=== PATIENT | female | born 1960 | race Caucasian/White ===

== ENCOUNTER 2022-03-26 19:57 | Emergency (ER) | payer SELFPAY ==
[~2022-03-26] VITALS: Ht 152.4 cm; Wt 68.0 kg
[~2022-03-26 19:57] MED LIST: ABILIFY10 MG PO; ADDERALL 20 MG20 MG PO; AMBIEN10 MG PO; ATORVASTATIN CA20 MG PO; AZO PO; BENTYL10 MG PO; CARAFATE1 GM/10 ML PO; CYMBALTA60 MG PO; DIAZEPAM10 MG PO; DITROPAN XL10 MG PO; FLAGYL250 MG PO; FLOMAX0.4 MG PO; GABAPENTIN100 MG PO; LEVAQUIN500 MG PO; LYRICA50 MG PO; PANTOPRAZOLE SO40 MG PO; PERCOCET 10-321 EACH PO; SERTRALINE HCL100 MG PO; SOMA350 MG PO; TRILEPTAL150 MG PO; TYLENOL WITH C1 EACH PO; ZOLPIDEM TARTRA10 MG PO
[2022-03-26] MEDS ORDERED: TRAMADOL HCL 50 MG TAB PO STA (20:29)
[2022-03-26] MEDS ORDERED: Morphine 4mg INJECTION 4 MG/ML INJ IM STA (21:10)
[2022-03-26] MEDS ORDERED: FENTANYL CITRATE/PF 100MCG/2 ML INJ IV ONE (21:15)
[2022-03-26] MEDS ORDERED: FENTANYL CITRATE/PF 100MCG/2 ML INJ ONE (21:27)
[2022-03-26] MEDS ORDERED: FENTANYL CITRATE/PF 100MCG/2 ML INJ IJ ONE (21:30)
[2022-03-26] MEDS ORDERED: HEPARIN SOD (PORCINE) 5,000 UNIT/ML VIAL IV ONE (21:45)
[2022-03-26] MEDS ORDERED: HEPARIN 25,000 UNIT 900 UNIT in DEXTROSE 5% 250ML 250 ML IV SCH ×2 (21:45→22:15)
[2022-03-26 22:01] LABS: BASOPHILS # (AUTO) 0.1 (0.0-0.1); BASOPHILS % 0.6 % (0.0-1.0); EOSINOPHILS # (AUTO) 0.3 (0.0-0.4); HEMATOCRIT 34.6 % (34.2-44.1); HEMOGLOBIN 11.5 g/dL (12.0-16.0); LYMPHOCYTES # (AUTO) 3.3 (1.0-3.2); LYMPHOCYTES % 36.4 % (18.0-39.1); MEAN CORPUSCULAR HEMOGLOBIN 31.6 pg (28-32); MEAN CORPUSCULAR HGB CONC 33.2 g/dL (31-35); MEAN CORPUSCULAR VOLUME 95.1 fL (81-99); MONOCYTES # (AUTO) 0.8 (0.2-0.8); MONOCYTES % 8.4 % (4.4-11.3); NEUTROPHILS # (AUTO) 4.6 (2.1-6.9); NEUTROPHILS % 51.4 % (38.7-80.0); PLATELET COUNT 274 x10e3/uL (140-360); RED BLOOD COUNT 3.64 x10e6/uL (3.6-5.1); RED CELL DISTRIBUTION WIDTH 11.9 % (11.7-14.4)
[2022-03-26 22:10] LABS: INR 1.03; PROTHROMBIN TIME 14.4 seconds (11.9-14.5)
[2022-03-26 22:11] LABS: PARTIAL THROMBOPLASTIN TIME 28.9 seconds (23.8-35.5)
[2022-03-26 22:17] LABS: ALBUMIN 3.4 g/dL (3.5-5.0); ALBUMIN/GLOBULIN RATIO 1.2 (0.8-2.0); CALCIUM 8.7 mg/dL (8.4-10.2); CREATININE, SERUM 0.73 mg/dL (0.57-1.11)
[2022-03-26] MEDS ORDERED: ACETAMINOPHEN 325 MG TAB PO STA (22:42)
[2022-03-26] MEDS ORDERED: SODIUM CHLORIDE 0.9% 1000ML 1,000 ML IV STA (22:42)
[2022-03-26] MEDS ORDERED: SODIUM CHLORIDE 0.9% 100 ML ONE (22:56)
[2022-03-26] MEDS ORDERED: IOPAMIDOL 370 MG/ML 100 ML INFUS..BTL INJ ONE (22:56)
[2022-03-26] MEDS ORDERED: ONDANSETRON HCL INJ 2MG/ML 2ML 2 MG/ML VIAL ONE (23:06)
[2022-03-26] MEDS ORDERED: HEPARIN 25,000 UNIT DRIP IV ONE (23:06)
[2022-03-27] MEDS ORDERED: Morphine 4mg INJECTION 4 MG/ML INJ ONE (00:58)
[2022-03-27] MEDS ORDERED: ONDANSETRON HCL INJ 2MG/ML 2ML 2 MG/ML VIAL ONE (00:58)
[2022-03-27] MEDS ORDERED: Morphine 4mg INJECTION 4 MG/ML INJ IV ONE (01:20)
== END 2022-03-27 01:42 | disposition other institution (70) ==
LOC: ER 20:18
DX: M79.605 Pain in left leg (principal); I74.3 Embolism and thrombosis of arteries of the lower extremities; I73.9 Peripheral vascular disease, unspecified; E78.00 Pure hypercholesterolemia, unspecified; F41.9 Anxiety disorder, unspecified; F90.9 Attention-deficit hyperactivity disorder, unspecified type; K21.9 Gastro-esophageal reflux disease without esophagitis
CPT/HCPCS: 0223U; 36415; 73706; 80053; 85025; 85610; 85730; 93926; 93971; 99284; J1644; J2270 ×2; J2405 ×2; J3010; J7050; Q9967

== ENCOUNTER → 2024-09-09 | Outpatient (REF) | payer BC | LOC: RAD 11:50 | PROVIDERS: ATTEND Internal Medicine | DX: J40 Bronchitis, not specified as acute or chronic (principal); J44.9 Chronic obstructive pulmonary disease, unspecified | CPT/HCPCS: 71046 ==

== ENCOUNTER 2024-11-27 14:21 | Emergency (ER) | payer BC ==
[~2024-11-27] VITALS: Ht 160 cm; Wt 72.6 kg
[2024-11-27 15:41] VITALS: PULSE 77; RESP 20; TEMP 98.7
[2024-11-27] MEDS ORDERED: DOXYCYCLINE HY100 MG PO (16:41)
[2024-11-27] MEDS ORDERED: ULTRAM 50MG50 MG PO (16:41)
[2024-11-27] MEDS ORDERED: CEPHALEXIN250 MG PO (16:41)
[2024-11-27] MEDS: ACETAMINOPHEN 325 MG TAB PO ONE (17:15)
[2024-11-27 17:26] VITALS: BP 140/66; PULSE 77; RESP 16; TEMP 97.9; O2SAT 97
== END 2024-11-27 17:28 | disposition home or self-care (01) ==
LOC: ER 16:26
DX: M79.674 Pain in right toe(s) (principal); S92.414A Nondisplaced fracture of proximal phalanx of right great toe, initial encounter for closed fracture; W18.49XA Other slipping, tripping and stumbling without falling, initial encounter; Y93.01 Activity, walking, marching and hiking; Y92.89 Other specified places as the place of occurrence of the external cause; E78.5 Hyperlipidemia, unspecified; K21.9 Gastro-esophageal reflux disease without esophagitis; F41.9 Anxiety disorder, unspecified; F32.A Depression, unspecified; F90.9 Attention-deficit hyperactivity disorder, unspecified type
CPT/HCPCS: 99283

== ENCOUNTER 2024-12-21 11:41 | Emergency (ER) | payer BC ==
[~2024-12-21] VITALS: Ht 152.4 cm; Wt 70.3 kg
[~2024-12-21 11:41] MED LIST changes: +CEPHALEXIN250 MG PO; +DOXYCYCLINE HY100 MG PO; +ULTRAM 50MG50 MG PO
[2024-12-21 11:52] VITALS: TEMP 98.7
[2024-12-21 12:30] VITALS: PULSE 84; RESP 16; O2SAT 95
[2024-12-21] MEDS ORDERED: CLINDAMYCIN HC150 MG PO (12:37)
[2024-12-21] MEDS ORDERED: MUPIROCIN22 GM TOP (12:37)
[2024-12-21 13:08] VITALS: BP 129/85; PULSE 83; RESP 16; TEMP 97.5
[2024-12-21] MEDS ORDERED: FLUCONAZOLE150 MG PO (13:21)
== END 2024-12-21 13:10 | disposition home or self-care (01) ==
LOC: ER 11:48
DX: L03.116 Cellulitis of left lower limb (principal); W22.09XA Striking against other stationary object, initial encounter; Y92.89 Other specified places as the place of occurrence of the external cause; E78.5 Hyperlipidemia, unspecified; K21.9 Gastro-esophageal reflux disease without esophagitis; F41.9 Anxiety disorder, unspecified; F32.A Depression, unspecified; Z96.642 Presence of left artificial hip joint
CPT/HCPCS: 99283